=== PATIENT | female | born 1950 | race Caucasian/White ===

== ENCOUNTER → 2018-08-23 | Outpatient (CLI) | payer MEDICARE, BC ==
[~2018-08-23] MED LIST: ALBUTEROL; ALBUTEROL0.63 MG/3 INH; ALLEGRA D; ASCORBIC ACID500 MG PO; ATORVASTATIN CA10 MG PO; CALCIUM; CALCIUM600 MG PO; CENTRUM SILVER; COMBIVENT RESPIM4 GM IH; FENOFIBRATE134 MG PO; IPRATROPIU0.2 MG/1 M NEB; LEVOFLOXACIN; LIPITOR; MONTELUKAST SOD10 MG PO; MUCINEX; NORCO 7.5-3251 EACH PO; PROBIOTIC & AC1 EACH PO; PROTONIX; SERTRALINE; SERTRALINE HCL50 MG PO; SYMBICORT; SYMBICORT 16010.2 GM INH; ULTRAM50 MG PO; VENTOLIN; VENTOLIN HFA18 GM PO; VITAMIN C500 MG PO
[2018-08-23 13:37] LABS: BLOOD UREA NITROGEN 11 mg/dL (7-26); BUN/CREATININE RATIO 17 (6-25); CREATININE, SERUM 0.66 mg/dL (0.57-1.11); EST GLOMERULAR FILTRATION RATE > 60 ML/MIN (60-)
--- NOTE | 2018-08-23 15:03 | Diagnostic Imaging Report ---
EXAMINATION: CHEST XRAY LINE PLACEMENT INDICATION: Status post PICC. COMPARISON: None FINDINGS: TUBES and LINES: Right-sided PICC terminates at the expected location of the upper SVC. LUNGS: Lungs are moderately inflated. Lungs are clear. There is no evidence of pneumonia or pulmonary edema. PLEURA: No pleural effusion or pneumothorax. HEART AND MEDIASTINUM: The cardiomediastinal silhouette is unremarkable. BONES AND SOFT TISSUES: No acute osseous abnormality. Cervical spine fixation hardware, partially visualized. UPPER ABDOMEN: No free air under the diaphragm. IMPRESSION: Right-sided PICC terminates in the upper SVC. No evidence of pneumothorax. Signed by: Dr. Brandie Mcdaniel MD on 08/23/2018 3:00 PM
== END ==
LOC: DX 12:44
PROVIDERS: ATTEND Internal Medicine Infectious Disease
DX: M86.042 Acute hematogenous osteomyelitis, left hand (principal)
CPT/HCPCS: 36415; 36569; 71045; 82565; 84520

== ENCOUNTER 2020-03-23 18:13 | Emergency (ER) | payer MEDICARE, BC ==
[~2020-03-23] VITALS: Ht 165.1 cm; Wt 68.0 kg
[2020-03-23] MEDS ORDERED: ACETAMINOPHEN 325 MG TAB PO ONE (18:45)
[2020-03-23] MEDS ORDERED: BAMLANIVIMAB 700 MG/20 ML VIAL IV ONE (18:45)
[2020-03-23] MEDS ORDERED: BAMLANIVIMAB 700 MG in SODIUM CHLORIDE 0.9% 250ML 250 ML IV ONE ×2 (19:00→19:20)
[2020-03-23 22:44] VITALS: BP 132/75
== END 2020-03-23 22:46 | disposition home or self-care (01) ==
LOC: ER 18:26
DX: U07.1 COVID-19 (principal); R06.02 Shortness of breath; R07.89 Other chest pain; I10 Essential (primary) hypertension; J44.9 Chronic obstructive pulmonary disease, unspecified; E78.5 Hyperlipidemia, unspecified
CPT/HCPCS: 99283; J7050

== ENCOUNTER 2021-02-11 14:28 | Inpatient (IN) | payer MEDICARE, BC ==
[~2021-02-11] VITALS: Ht 165.1 cm; Wt 75.9 kg
[2021-02-11] MEDS ORDERED: ONDANSETRON HCL INJ 2MG/ML 2ML 2 MG/ML VIAL IV STA (14:48)
[2021-02-11] MEDS ORDERED: ACETAMINOPHEN 325 MG TAB PO ONE (15:00)
[2021-02-11] MEDS ORDERED: DEXAMETHASONE SOD PHOS 10 MG/1 ML VIAL IV ONE (15:00)
[2021-02-11] MEDS ORDERED: SODIUM CHLORIDE 0.9% 500ML 500 ML IV ONE (15:00)
[2021-02-11 15:04] LABS: BASOPHILS % 0.2 % (0.0-1.0); EOSINOPHILS % 0.2 % (0.0-6.0); HEMATOCRIT 41.1 % (34.2-44.1); HEMOGLOBIN 13.4 g/dL (12.0-16.0); LYMPHOCYTES % 5.3 % (18.0-39.1); MEAN CORPUSCULAR HEMOGLOBIN 30.1 pg (28-32); MEAN CORPUSCULAR HGB CONC 32.6 g/dL (31-35); MEAN CORPUSCULAR VOLUME 92.4 fL (81-99); MONOCYTES # (AUTO) 0.7 (0.2-0.8); MONOCYTES % 3.7 % (4.4-11.3); NEUTROPHILS # (AUTO) 16.8 (2.1-6.9); PLATELET COUNT 181 x10e3/uL (140-360); RED BLOOD COUNT 4.45 x10e6/uL (3.6-5.1); RED CELL DISTRIBUTION WIDTH 13.2 % (11.7-14.4)
[2021-02-11 15:23] LABS: ALBUMIN 3.3 g/dL (3.5-5.0); ALBUMIN/GLOBULIN RATIO 1.3 (0.8-2.0); ANION GAP 14.3 mmol/L (8-16); CALCIUM 9.1 mg/dL (8.4-10.2); CREATININE, SERUM 0.65 mg/dL (0.57-1.11); POTASSIUM 3.3 mmol/L (3.5-5.1)
[2021-02-11] MEDS ORDERED: SODIUM CHLORIDE FLUSH 10 ML SYR INJ PRN (16:15)
[2021-02-11] MEDS: ASCORBIC ACID 500 MG TAB PO SCH (16:20)
[2021-02-11] MEDS ORDERED: ALBUTEROL SULFATE HFA 8GM INHALATION AEROSOL INH PRN (16:30)
[2021-02-11] MEDS ORDERED: TRAMADOL HCL 50 MG TAB PO PRN (16:30)
[2021-02-11] MEDS ORDERED: REMDESIVIR 200MG 200 MG in SODIUM CHLORIDE 0.9% 100 ML IV ONE (17:00)
[2021-02-11] MEDS ORDERED: REMDESIVIR 100MG 100 MG IV ONE (17:39)
[2021-02-11] MEDS: ENOXAPARIN SOD INJ 40 MG/0.4 ML SYR SC SCH (17:46)
[2021-02-11] MEDS: ZINC SULFATE 50 MG CAP PO SCH (17:46)
[2021-02-11] MEDS ORDERED: BENZONATATE100 MG PO (18:05)
[2021-02-11] MEDS ORDERED: AMLODIPINE BESYL5 MG PO (18:05)
[2021-02-11] MEDS ORDERED: IPRAT-ALBUT 0.5-3 ML NEB (18:05)
[2021-02-11] MEDS ORDERED: PANTOPRAZOLE SO40 MG PO (18:07)
[2021-02-11] MEDS ORDERED: FENOFIBRATE134 MG (18:22)
[2021-02-11] MEDS ORDERED: SYMBICORT 16010.2 GM INH (18:22)
[2021-02-11] MEDS: BUDESONIDE/FORMOTEROL 160/4.5MCG INHALER INH SCH (19:00)
[2021-02-12] MEDS ORDERED: ACETAMINOPHEN 325 MG TAB PO PRN (01:00)
[2021-02-12] MEDS ORDERED: POLYETHYLENE GLYCOL 3350 17 GM PACK PO PRN (01:00)
[2021-02-12] MEDS ORDERED: HYDRALAZINE HCL 20 MG/ML VIAL IV PRN (01:00)
[2021-02-12] MEDS: BUDESONIDE/FORMOTEROL 160/4.5MCG INHALER INH SCH ×2 (07:00→19:30)
[2021-02-12 09:06] VITALS: BP 111/62
[2021-02-12 09:15] VITALS: BP 111/62
[2021-02-12 09:31] LABS: BASOPHILS % 0.2 % (0.0-1.0); HEMATOCRIT 40.3 % (34.2-44.1); HEMOGLOBIN 12.9 g/dL (12.0-16.0); LYMPHOCYTES # (AUTO) 0.6 (1.0-3.2); LYMPHOCYTES % 4.5 % (18.0-39.1); MEAN CORPUSCULAR HEMOGLOBIN 29.5 pg (28-32); MONOCYTES # (AUTO) 0.2 (0.2-0.8); MONOCYTES % 1.9 % (4.4-11.3); NEUTROPHILS # (AUTO) 11.7 (2.1-6.9); NEUTROPHILS % 91.9 % (38.7-80.0); PLATELET COUNT 186 x10e3/uL (140-360); RED BLOOD COUNT 4.38 x10e6/uL (3.6-5.1); RED CELL DISTRIBUTION WIDTH 13.2 % (11.7-14.4)
[2021-02-12 09:44] LABS: ANION GAP 16.4 mmol/L (8-16); CALCIUM 9.2 mg/dL (8.4-10.2); CREATININE, SERUM 0.6 mg/dL (0.57-1.11); POTASSIUM 3.4 mmol/L (3.5-5.1)
[2021-02-12 09:46] LABS: CHOL/HDL RATIO 1.9 (3.0-3.6); MAGNESIUM 1.9 MG/DL (1.3-2.1); PHOSPHORUS 3.7 MG/DL (2.3-4.7)
[2021-02-12 10:05] LABS: THYROID STIMULATING HORMONE 0.271 uIU/mL (0.350-4.940)
[2021-02-12] MEDS: LEVOFLOXACIN 500MG/D5W 100ML 100 ML IV SCH (10:25)
[2021-02-12] MEDS: FAMOTIDINE 20 MG/2 ML VIAL IV SCH ×2 (10:32→16:39)
[2021-02-12] MEDS: DEXAMETHASONE SOD PHOS 10 MG/1 ML VIAL IV SCH (10:35)
[2021-02-12] MEDS: ZINC SULFATE 50 MG CAP PO SCH (10:35)
[2021-02-12] MEDS: DOCUSATE SODIUM 100 MG CAP PO SCH ×2 (10:35→16:39)
[2021-02-12] MEDS: MONTELUKAST SODIUM 10 MG TAB PO SCH (10:35)
[2021-02-12] MEDS: ASCORBIC ACID 500 MG TAB PO SCH ×2 (10:35→16:39)
[2021-02-12] MEDS ORDERED: SODIUM CHLORIDE 0.9% 250ML 250 ML ONE (10:37)
[2021-02-12 12:00] VITALS: BP 126/67
[2021-02-12 12:16] LABS: LYMPHOCYTES % (MANUAL) 5 % (19-48); MYELOCYTES % (MANUAL) 1 % (0-0); NEUTROPHILS % (MANUAL) 94 % (40-74)
[2021-02-12 12:17] LABS: PLATELET ESTIMATE ADEQUATE; PLATELET MORPHOLOGY COMMENT NORMAL; RBC MORPHOLOGY COMMENT NORMAL
[2021-02-12] MEDS: SERTRALINE HCL 50 MG TAB PO SCH (14:04)
[2021-02-12 16:00] VITALS: BP 124/74
[2021-02-12] MEDS: ENOXAPARIN SOD INJ 40 MG/0.4 ML SYR SC SCH (16:39)
[2021-02-12] MEDS: REMDESIVIR 100MG 100 MG in SODIUM CHLORIDE 0.9% 100 ML IV SCH (16:39)
[2021-02-12] MEDS: POTASSIUM CHLORIDE 20 MEQ TAB CR PO ONE ×2 (17:57→18:44)
[2021-02-12] MEDS ORDERED: POTASSIUM CHLORIDE 20 MEQ TAB CR PO ONE (18:15)
[2021-02-12 19:52] VITALS: BP 124/75
[2021-02-12 20:17] VITALS: BP 124/75
[2021-02-12] MEDS: FENOFIBRATE 145 MG TAB PO SCH (21:02)
[2021-02-13] VITALS (7 sets, daily range): BP systolic 121–127; BP diastolic 68–101
[2021-02-13] MEDS: BUDESONIDE/FORMOTEROL 160/4.5MCG INHALER INH SCH ×2 (07:00→19:51)
[2021-02-13 07:28] LABS: ANION GAP 12.6 mmol/L (8-16); CALCIUM 8.5 mg/dL (8.4-10.2); CREATININE, SERUM 0.59 mg/dL (0.57-1.11); POTASSIUM 3.6 mmol/L (3.5-5.1)
[2021-02-13 07:38] LABS: BASOPHILS % 0.6 % (0.0-1.0); EOSINOPHILS % 0.2 % (0.0-6.0); HEMATOCRIT 40.4 % (34.2-44.1); HEMOGLOBIN 12.6 g/dL (12.0-16.0); LYMPHOCYTES # (AUTO) 1.4 (1.0-3.2); LYMPHOCYTES % 21.6 % (18.0-39.1); MEAN CORPUSCULAR HEMOGLOBIN 30.1 pg (28-32); MEAN CORPUSCULAR HGB CONC 31.2 g/dL (31-35); MEAN CORPUSCULAR VOLUME 96.4 fL (81-99); MONOCYTES # (AUTO) 0.5 (0.2-0.8); MONOCYTES % 8.4 % (4.4-11.3); NEUTROPHILS # (AUTO) 4.4 (2.1-6.9); NEUTROPHILS % 67.3 % (38.7-80.0); PLATELET COUNT 175 x10e3/uL (140-360); RED BLOOD COUNT 4.19 x10e6/uL (3.6-5.1); RED CELL DISTRIBUTION WIDTH 13.4 % (11.7-14.4)
[2021-02-13] MEDS: DOCUSATE SODIUM 100 MG CAP PO SCH ×2 (09:00→16:59)
[2021-02-13] MEDS: PANTOPRAZOLE SOD 40 MG TABEC PO SCH (09:08)
[2021-02-13] MEDS: ZINC SULFATE 50 MG CAP PO SCH (09:08)
[2021-02-13] MEDS: DEXAMETHASONE SOD PHOS 10 MG/1 ML VIAL IV SCH (09:08)
[2021-02-13] MEDS: MONTELUKAST SODIUM 10 MG TAB PO SCH (09:08)
[2021-02-13] MEDS: SERTRALINE HCL 50 MG TAB PO SCH (09:08)
[2021-02-13] MEDS: CALCIUM CARBONATE 500 MG CHEWABLE TABS PO SCH (09:08)
[2021-02-13] MEDS: LACTOBACILLUS ACIDOPHILUS CAPSULE PO SCH (09:08)
[2021-02-13] MEDS: AMLODIPINE BESYLATE 5 MG TAB PO SCH (09:08)
[2021-02-13] MEDS: CHOLECALCIFEROL 400 UNIT TAB PO SCH (09:08)
[2021-02-13] MEDS: FAMOTIDINE 20 MG/2 ML VIAL IV SCH ×2 (09:08→17:25)
[2021-02-13] MEDS: LEVOFLOXACIN 500MG/D5W 100ML 100 ML IV SCH (09:08)
[2021-02-13] MEDS: ASCORBIC ACID 500 MG TAB PO SCH ×2 (09:08→17:25)
[2021-02-13] MEDS: ONDANSETRON HCL INJ 2MG/ML 2ML 2 MG/ML VIAL IV PRN ×2 (09:08→18:23)
[2021-02-13] MEDS ORDERED: LEVALBUTEROL HCL SOLN NEBU 0.63 MG/3 ML NEB INH ONE (10:30)
[2021-02-13] MEDS ORDERED: GUAIFENESIN/CODEINE 5 ML LIQD PO ONE (11:00)
[2021-02-13] MEDS: REMDESIVIR 100MG 100 MG in SODIUM CHLORIDE 0.9% 100 ML IV SCH (17:25)
[2021-02-13] MEDS: ENOXAPARIN SOD INJ 40 MG/0.4 ML SYR SC SCH (17:25)
[2021-02-13] MEDS: FENOFIBRATE 145 MG TAB PO SCH (20:40)
[2021-02-13] MEDS: GUAIFENESIN/CODEINE 5 ML LIQD PO PRN (20:50)
[2021-02-14] VITALS (8 sets, daily range): BP systolic 111–137; BP diastolic 68–82
[2021-02-14] MEDS: BUDESONIDE/FORMOTEROL 160/4.5MCG INHALER INH SCH ×2 (07:30→20:42)
[2021-02-14] MEDS ORDERED: SODIUM CHLORIDE 0.9% 250ML 250 ML ONE (07:42)
[2021-02-14] MEDS: SERTRALINE HCL 50 MG TAB PO SCH (09:12)
[2021-02-14] MEDS: CALCIUM CARBONATE 500 MG CHEWABLE TABS PO SCH (09:12)
[2021-02-14] MEDS: LEVOFLOXACIN 500MG/D5W 100ML 100 ML IV SCH (09:12)
[2021-02-14] MEDS: DOCUSATE SODIUM 100 MG CAP PO SCH ×2 (09:12→17:02)
[2021-02-14] MEDS: CHOLECALCIFEROL 400 UNIT TAB PO SCH (09:12)
[2021-02-14] MEDS: MONTELUKAST SODIUM 10 MG TAB PO SCH (09:12)
[2021-02-14] MEDS: AMLODIPINE BESYLATE 5 MG TAB PO SCH (09:12)
[2021-02-14] MEDS: PANTOPRAZOLE SOD 40 MG TABEC PO SCH (09:12)
[2021-02-14] MEDS: LACTOBACILLUS ACIDOPHILUS CAPSULE PO SCH (09:12)
[2021-02-14] MEDS: ASCORBIC ACID 500 MG TAB PO SCH ×2 (09:12→17:02)
[2021-02-14] MEDS: DEXAMETHASONE SOD PHOS 10 MG/1 ML VIAL IV SCH (09:12)
[2021-02-14] MEDS: ZINC SULFATE 50 MG CAP PO SCH (09:12)
[2021-02-14] MEDS: FAMOTIDINE 20 MG/2 ML VIAL IV SCH ×2 (09:12→17:02)
[2021-02-14] MEDS: ONDANSETRON HCL INJ 2MG/ML 2ML 2 MG/ML VIAL IV PRN ×2 (10:31→18:50)
[2021-02-14] MEDS: REMDESIVIR 100MG 100 MG in SODIUM CHLORIDE 0.9% 100 ML IV SCH (17:02)
[2021-02-14] MEDS: ENOXAPARIN SOD INJ 40 MG/0.4 ML SYR SC SCH (17:02)
[2021-02-14] MEDS: FENOFIBRATE 145 MG TAB PO SCH (21:35)
[2021-02-14] MEDS: GUAIFENESIN/CODEINE 5 ML LIQD PO PRN (21:35)
[2021-02-15] VITALS (8 sets, daily range): BP systolic 103–129; BP diastolic 65–87
[2021-02-15] MEDS: BUDESONIDE/FORMOTEROL 160/4.5MCG INHALER INH SCH ×2 (06:55→19:25)
[2021-02-15] MEDS: CHOLECALCIFEROL 400 UNIT TAB PO SCH (08:34)
[2021-02-15] MEDS: LEVOFLOXACIN 500MG/D5W 100ML 100 ML IV SCH (08:34)
[2021-02-15] MEDS: ONDANSETRON HCL INJ 2MG/ML 2ML 2 MG/ML VIAL IV PRN ×3 (08:34→23:46)
[2021-02-15] MEDS: MONTELUKAST SODIUM 10 MG TAB PO SCH (08:34)
[2021-02-15] MEDS: ZINC SULFATE 50 MG CAP PO SCH (08:34)
[2021-02-15] MEDS: DEXAMETHASONE SOD PHOS 10 MG/1 ML VIAL IV SCH (08:34)
[2021-02-15] MEDS: LACTOBACILLUS ACIDOPHILUS CAPSULE PO SCH (08:34)
[2021-02-15] MEDS: PANTOPRAZOLE SOD 40 MG TABEC PO SCH (08:34)
[2021-02-15] MEDS: SERTRALINE HCL 50 MG TAB PO SCH (08:34)
[2021-02-15] MEDS: FAMOTIDINE 20 MG/2 ML VIAL IV SCH ×2 (08:34→17:38)
[2021-02-15] MEDS: CALCIUM CARBONATE 500 MG CHEWABLE TABS PO SCH (08:34)
[2021-02-15] MEDS: DOCUSATE SODIUM 100 MG CAP PO SCH ×2 (08:34→17:38)
[2021-02-15] MEDS: ASCORBIC ACID 500 MG TAB PO SCH ×2 (08:34→17:38)
[2021-02-15] MEDS: AMLODIPINE BESYLATE 5 MG TAB PO SCH (08:34)
[2021-02-15] MEDS: ENOXAPARIN SOD INJ 40 MG/0.4 ML SYR SC SCH (17:38)
[2021-02-15] MEDS: REMDESIVIR 100MG 100 MG in SODIUM CHLORIDE 0.9% 100 ML IV SCH (17:38)
[2021-02-15] MEDS: FENOFIBRATE 145 MG TAB PO SCH (22:09)
[2021-02-15] MEDS: GUAIFENESIN/CODEINE 5 ML LIQD PO PRN (22:09)
[2021-02-16 01:00] VITALS: BP 121/78
[2021-02-16 04:13] VITALS: BP 146/81
[2021-02-16 06:20] LABS: BASOPHILS % 0.2 % (0.0-1.0); EOSINOPHILS % 0.4 % (0.0-6.0); HEMATOCRIT 37.9 % (34.2-44.1); HEMOGLOBIN 12.1 g/dL (12.0-16.0); LYMPHOCYTES # (AUTO) 2.5 (1.0-3.2); LYMPHOCYTES % 27.3 % (18.0-39.1); MEAN CORPUSCULAR HEMOGLOBIN 29.5 pg (28-32); MEAN CORPUSCULAR HGB CONC 31.9 g/dL (31-35); MEAN CORPUSCULAR VOLUME 92.4 fL (81-99); MONOCYTES # (AUTO) 0.9 (0.2-0.8); MONOCYTES % 10.2 % (4.4-11.3); NEUTROPHILS # (AUTO) 5.5 (2.1-6.9); NEUTROPHILS % 60.1 % (38.7-80.0); PLATELET COUNT 179 x10e3/uL (140-360); RED CELL DISTRIBUTION WIDTH 12.8 % (11.7-14.4)
[2021-02-16 06:46] LABS: CALCIUM 8.8 mg/dL (8.4-10.2); CREATININE, SERUM 0.61 mg/dL (0.57-1.11); MAGNESIUM 2.1 MG/DL (1.3-2.1); PHOSPHORUS 3.3 MG/DL (2.3-4.7)
[2021-02-16] MEDS: BUDESONIDE/FORMOTEROL 160/4.5MCG INHALER INH SCH (07:47)
[2021-02-16 07:52] VITALS: BP 146/81
[2021-02-16] MEDS ORDERED: LEVOFLOXACIN 500 MG TAB PO SCH (09:00)
[2021-02-16 09:07] VITALS: BP 133/65
[2021-02-16] MEDS: AMLODIPINE BESYLATE 5 MG TAB PO SCH (09:20)
[2021-02-16] MEDS: FAMOTIDINE 20 MG/2 ML VIAL IV SCH (09:20)
[2021-02-16] MEDS: MONTELUKAST SODIUM 10 MG TAB PO SCH (09:20)
[2021-02-16] MEDS: PANTOPRAZOLE SOD 40 MG TABEC PO SCH (09:20)
[2021-02-16] MEDS: DOCUSATE SODIUM 100 MG CAP PO SCH (09:20)
[2021-02-16] MEDS: LACTOBACILLUS ACIDOPHILUS CAPSULE PO SCH (09:20)
[2021-02-16] MEDS: ZINC SULFATE 50 MG CAP PO SCH (09:20)
[2021-02-16] MEDS: CALCIUM CARBONATE 500 MG CHEWABLE TABS PO SCH (09:20)
[2021-02-16] MEDS: SERTRALINE HCL 50 MG TAB PO SCH (09:20)
[2021-02-16] MEDS: ASCORBIC ACID 500 MG TAB PO SCH (09:20)
[2021-02-16] MEDS: CHOLECALCIFEROL 400 UNIT TAB PO SCH (09:20)
[2021-02-16] MEDS: DEXAMETHASONE SOD PHOS 10 MG/1 ML VIAL IV SCH (09:20)
[2021-02-16] MEDS ORDERED: POTASSIUM CHLORIDE 20 MEQ TAB CR PO ONE (10:30)
[2021-02-16] MEDS: ONDANSETRON HCL INJ 2MG/ML 2ML 2 MG/ML VIAL IV PRN (10:56)
[2021-02-16 12:02] VITALS: BP 113/64
[2021-02-16 16:42] VITALS: BP 111/68
[2021-02-16] MEDS ORDERED: ONDANSETRON HCL 4 MG ORAL DISINTEGRATING TAB PO PRN (17:15)
[2021-02-16] MEDS ORDERED: FAMOTIDINE 20 MG TAB PO SCH (17:30)
== END 2021-02-16 17:24 | disposition home or self-care (01) | DRG 177 ==
LOC: ER 15:10 → ERHOLD 16:02 → MED/SURG2 02-12 08:20
PROVIDERS: ADMIT Internal Medicine; ATTEND Internal Medicine
PROC: 8E0ZXY6 Isolation (ICD-10-PCS; principal; 2021-02-11)
PROC: XW033E5 Introduction of Remdesivir Anti-infective into Peripheral Vein, Percutaneous Approach, New Technology Group 5 (ICD-10-PCS; 2021-02-11)
DX: U07.1 COVID-19 (principal); J12.82 Pneumonia due to coronavirus disease 2019; J44.1 Chronic obstructive pulmonary disease with (acute) exacerbation; I10 Essential (primary) hypertension; E87.6 Hypokalemia; D72.828 Other elevated white blood cell count; E78.5 Hyperlipidemia, unspecified; Z88.0 Allergy status to penicillin; E66.9 Obesity, unspecified; Z68.27 Body mass index [BMI] 27.0-27.9, adult; R09.02 Hypoxemia
CPT/HCPCS: 36415; 71045; 80048; 80053; 80061; 83036; 83735; 84100; 84443; 85025; 94664; 94799; 99285; J0456; J1100; J1650; J1956; J2405; J7040; J7050

== ENCOUNTER → 2021-03-17 | Outpatient (CLI) | payer MEDICARE, BC ==
[~2021-03-17] MED LIST changes: +AMLODIPINE BESYL5 MG PO; +BENZONATATE100 MG PO; +FENOFIBRATE134 MG; +IPRAT-ALBUT 0.5-3 ML NEB; +PANTOPRAZOLE SO40 MG PO
== END ==
LOC: RAD 14:05
PROVIDERS: ATTEND Internal Medicine Critical Care Medicine
DX: J12.9 Viral pneumonia, unspecified (principal)
CPT/HCPCS: 71046